=== PATIENT | male | born 1960 ===

== ENCOUNTER 2020-09-30 08:17 | Day surgery (SDC) | payer OTHER ==
[~2020-09-30 08:17] MED LIST: ATENOLOL-CHLOR1 EACH PO; PANTOPRAZOLE SO40 MG PO
[2020-09-30] MEDS ORDERED: COLACE100 MG PO (15:57)
[2020-09-30] MEDS ORDERED: PERCOCET 5-3251 EACH PO (15:57)
== END 2020-09-30 22:00 | disposition home or self-care (01) ==
LOC: CIR.AMB 08:17
PROVIDERS: ATTEND Surgery
DX: K60.1 Chronic anal fissure (principal); Z20.828 Contact with and (suspected) exposure to other viral communicable diseases; K62.0 Anal polyp